=== PATIENT | female | born 1940 | race Caucasian/White ===

== ENCOUNTER 2019-11-19 18:45 | Emergency (ER) | payer MEDICARE, OTHER, SELFPAY ==
[2019-11-19 19:04] VITALS: BP 220/91; PULSE 68; RESP 18; TEMP 36.7; O2SAT 97
--- NOTE | 2019-11-19 19:17 | ED.SKABFB ---
HPI - Skin/Abscess/Foreign Bdy <MACHO Caraballo - Last Filed: 11/19/19 20:40> General Chief complaint: Neck Pain/Injury Stated complaint: swelling mass left side neck Time Seen by Provider: 11/19/19 18:49 Source: patient Mode of arrival: Ambulatory Limitations: no limitations History of Present Illness HPI narrative: 79yo female with a history a HTN, hayfever, chronic sinusitis, and severe allergy to iodine, presents emergency department for swelling to the left side of her face that happened suddenly after eating lunch. She states she felt a large lump on the left side of her jaw with surrounding redness. Patient denies any trauma to the area. She states she has been treated over the past few weeks for a sinus infection. She was supposed to be re-evaluated by her provider but the appointment got moved. Patient states she continues to have some postnasal drip and sinus irritation but has been feeling better. She states she has a history of Meniere's disease and has some irritation in her left ear chronically, she denies any worsening of this pain. Patient states the lump on the left side of her face has significantly decreased over the past hour. Patient denies any fevers but states I never get fevers, she denies any malaise, nausea, vomiting, diarrhea, chest pain, shortness of breath, or other concerns. Patient states she has a history of high blood pressure, was recently taking two medications to control her blood pressure but her primary care provider discontinued when the medications that she was allergic to it. She is scheduled to have a follow-up with him but she has only been on 1 blood pressure medication for the past few months. Denies any headaches, vision changes, syncope, or other concerns. Related Data Previous Rx's Medication Instructions Recorded azithromycin See Rx Instructions .ROUTE 11/19/19 .COMPLEX #6 tab Allergies Allergy/AdvReac Type Severity Reaction Status Date / Time iodine Allergy Severe Anaphylaxis Verified 11/19/19 19:17 Review of Systems <MACHO Caraballo - Last Filed: 11/19/19 20:40> Review of Systems Narrative: REVIEW OF SYSTEMS: GENERAL: Denies fever or chills. HENT: No head trauma. Patient reports swelling to left side of job. EYES: No vision changes. CARDIOVASCULAR: No chest pain or syncope. RESPIRATORY: No shortness of breath or cough. GASTROINTESTINAL: No nausea, vomiting, diarrhea, or constipation. GENITOURINARY: No flank pain. MUSCULOSKELETAL: No pain with jaw movement, see HPI INTEGUMENTARY: No rash, lesions, or pruritus. NEURO: No numbness or tingling. PSYCH: No behavior or mood changes. Patient History <MACHO Caraballo - Last Filed: 11/19/19 20:40> Medical History Chronic sinus infection (Acute) Social History Smoking Status: Never smoker Smoking Status: Never smoker Substance Use Type: does not use Exam <MACHO Caraballo - Last Filed: 11/19/19 20:40> Initial Vital Signs Initial Vital Signs: Vital Signs Temperature 98.0 F 11/19/19 19:04 Pulse Rate 68 11/19/19 19:04 Respiratory Rate 18 11/19/19 19:04 Blood Pressure 220/91 H 11/19/19 19:04 Pulse Oximetry 97 11/19/19 19:04 PHYSICAL EXAMINATION: GENERAL: Well groomed, alert, and cooperative. Answers questions promptly and appropriately. Vital signs noted. HENT: Normocephalic, atraumatic. Ear canals patent. TMs intact without mucus or erythema. Oropharynx without erythema. Tonsils are not present. Slightly tender and swollen left parietal gland. No tenderness to temporal area, no tenderness to mastoid area. No rash, erythema, or nodules. EYES: Conjunctiva pink, sclera white, no periorbital swelling. No discharge. CHEST: Normal to inspection and without deformities. CARDIOVASCULAR: Regular rate. RESPIRATORY: Normal respiratory rate, trachea midline, airway patent. No stridor, nasal flaring or accessory muscle use. Able to speak in full sentences. MUSCULOSKELETAL: Normal gait and coordination. Equal tone and mass bilaterally. EXTREMITIES: Moves all extremities. SKIN: Warm, dry, soft, appropriate color for ethnicity. No lesions, rashes, or wounds to visualized areas. NEURO: Alert and Oriented X 3. Good coordination. No ataxia or cognitive issues. PSYCH: Appropriate affect and mood. <Manuel Paul DO - Last Filed: 11/20/19 06:13> Initial Vital Signs Initial Vital Signs: Vital Signs Temperature 98.0 F 11/19/19 19:04 Pulse Rate 68 11/19/19 19:04 Respiratory Rate 18 11/19/19 19:04 Blood Pressure 220/91 H 11/19/19 19:04 Pulse Oximetry 97 11/19/19 19:04 Course <MACHO Caraballo - Last Filed: 11/19/19 20:40> Course Course Narrative: Patient was able to suck on a mint while in the emergency department, she states swelling has significantly decreased since sucking intermittent. Upon re-evaluation she states that left sinus feels full. Vital Signs Vital signs: Vital Signs - 8 hr 11/19/19 19:04 11/19/19 20:17 Temperature 98.0 F 98.5 F Pulse Rate 68 63 Respiratory Rate 18 14 Blood Pressure 220/91 H 173/85 H Pulse Oximetry 97 98 <Manuel Paul DO - Last Filed: 11/20/19 06:13> Vital Signs Vital signs: Vital Signs - 8 hr 11/19/19 19:04 11/19/19 20:17 Temperature 98.0 F 98.5 F Pulse Rate 68 63 Respiratory Rate 18 14 Blood Pressure 220/91 H 173/85 H Pulse Oximetry 97 98 MDM - Skin/Abscess/Foreign Bdy <MACHO Caraballo - Last Filed: 11/19/19 20:40> Medical Records Attestation: I reviewed the patient's medical records. Lab Data Attestation: I reviewed the patient's lab results. MDM Narrative Medical decision making narrative: 79-year-old female presenting to the emergency department with left-sided facial swelling. I suspect this most likely a swollen parotid gland related to salivary blockage, swelling has significantly decreased since presentation to emergency department. Additionally, blood in the emergency department, swelling has decreased as patient is sucking on a minute. Upon further evaluation, she reported left sinus pressure. She was recently treated for sinus infection and was told that she needed another round of antibiotics. Patient has a history of chronic sinusitis. She states the only medication that she can take for this is azithromycin, all other medications cause allergic reactions. Less likely systemic infection due to lack of systemic symptoms such as fever or tachycardia. Patient is well-appearing, hemodynamically stable. Less likely mastoiditis due to lack of tenderness on palpation of the mastoid, no swelling in this area. Less concern for temporal arteritis given lack of tenderness, swelling, or erythema the temporal area. Given patient's history of chronic sinusitis, this may be contributing to parotid swelling. She was encouraged to follow up with her PCP in the next week. She was counseled about her high blood pressure. Return precautions given for new or worsening symptoms. Patient agreed to plan of care verbalized understanding. Discharge Plan Departure Patient Disposition: Home Clinical Impression: Parotid gland enlargement Sinusitis Qualifiers: Sinusitis location: frontal Chronicity: acute Recurrence: recurrent Qualified Code(s): J01.11 - Acute recurrent frontal sinusitis Discharge Date/Time: 11/19/19 20:05 Instructions: DI for Parotitis-Adult Activity Restrictions/Additional Instructions: Thank you for entrusting me with your care today. As discussed, the swelling on the left side of your face is most likely caused by an enlargement of 1 of your salivary glands. This can happen randomly especially food irritates this area. I recommend sucking on hard candies before and after meal to help prevent this from happening again. Apply warm compresses and alternate with ice. Additionally, there was concern they may have a sinus infection given your left sided pain, history of sinus infections. I prescribed you antibiotics, please take these accordingly. Your blood pressure was high today, please follow up with your primary care provider in the next few weeks. Return emergency department for any new or worsening symptoms such as severe pain, uncontrollable vomiting, dizziness, syncope, or any other concerns. Prescriptions: New azithromycin 250 mg tablet See Rx Instructions .ROUTE .COMPLEX Qty: 6 RF: 0 <Manuel Paul DO - Last Filed: 11/20/19 06:13> Cosign ED Attending Cosignature Attestation: I was immediately available in the department for consultation. This documentation has been reviewed and I agree with assessment and plan. Supervised by Manuel Paul DO
[2019-11-19 20:17] VITALS: BP 173/85; PULSE 63; RESP 14; TEMP 36.9; O2SAT 98
== END 2019-11-19 20:05 | disposition home or self-care (01) ==
PROVIDERS: Emergency Provider Nurse Practitioner
DX: J01.11 Acute recurrent frontal sinusitis (principal); K11.1 Hypertrophy of salivary gland; I10 Essential (primary) hypertension
CPT/HCPCS: 99281

== ENCOUNTER 2020-05-15 18:08 | Observation (INO) | payer MEDICARE, OTHER, SELFPAY ==
[2020-05-15] VITALS (10 sets, daily range): BP systolic 153–198; BP diastolic 70–86; PULSE 66–98; RESP 18–22; TEMP 36.5–36.7; O2SAT 95–99; BMI 30.6
[2020-05-15 19:25] LABS: Add Manual Diff / Slide Review NO; Basophils Absolute Auto 0 /uL (0-100); Basophils Percent Auto 0.4 % (0-2); Eosinophils Absolute Auto 300 /uL (0-450); Eosinophils Percent Auto 3.8 % (2-4); Hematocrit 44.6 % (36-46); Hemoglobin 14.8 g/dL (12.0-16.0); Lymphocytes Absolute Auto 3700 /uL (1100-4500); Lymphocytes Percent Auto 40.1 % (25-40); Mean Corpuscular HGB Conc 33.1 % (30-36); Mean Corpuscular Hemoglobin 30.4 PG (26-34); Mean Corpuscular Volume 91.7 fL (80-100); Monocytes Absolute Auto 600 /uL (0-900); Monocytes Percent Auto 6.9 % (3-14); Neutrophils Absolute Auto 4500 /uL (1500-7000); Neutrophils Percent Auto 48.8 % (50-75); Platelet Count 230 X10^3/uL (150-400); Red Blood Cell Count 4.86 X10^6/uL (4.0-5.2); Red Cell Distribution Width 12.4 % (11.6-14.8); White Blood Cell Count 9.2 X10^3/uL (4.5-11.0)
[2020-05-15 19:29] LABS: Prothrombin Time 11.6 SECONDS (10.1-12.7)
[2020-05-15 19:32] LABS: Alanine Aminotransferase 24 IU/L (<35); Albumin 4.7 g/dL (3.5-5.0); Albumin Globulin Ratio 1.5 (1.0-2.8); Alkaline Phosphatase 87 U/L (38-126); Aspartate Aminotransferase 42 IU/L (14-36); BUN Creatinine Ratio 18.5 (6-22); Bilirubin Total 0.4 mg/dL (0.2-1.3); Blood Urea Nitrogen 28 mg/dL (7-17); Carbon Dioxide 31 mmol/L (22-32); Chloride 103 mmol/L (98-107); Globulin 3.1 g/dL (1.7-4.1); Glucose 126 mg/dL (80-110); HEMOLYSIS 69 (0-50); PTT Partial Thromboplastin Tim 33 SECONDS (26.4-36.2); Sodium 142 mmol/L (137-145); Total Protein 7.8 g/dL (6.3-8.2)
[2020-05-15 19:33] LABS: Potassium 3.7 mmol/L (3.4-5.1)
--- NOTE | 2020-05-15 20:28 | DI.CT.S_ITS ---
PROCEDURE: CT ABDOMEN PELVIS WO CON INDICATIONS: Abdominal pain/GI bleed TECHNIQUE: Noncontrast 5 mm thick sections acquired from the diaphragms to the symphysis. 5 mm coronal and sagittal reformats were then performed. For radiation dose reduction, the following was used: automated exposure control, adjustment of mA and/or kV according to patient size. COMPARISON: [facility], US, US RENAL COMPLETE, 09/12/2019, 14:10. FINDINGS: Image quality: Excellent. ABDOMEN: Lung bases: Lung bases are clear. Heart size is normal. Solid organs: There is a 7 mm indeterminate hepatic hypodensity in the posterior segment of the right hepatic lobe. Mild hepatic steatosis. Liver is normal in size. Gallbladder is probably surgically absent. Mild prominence of common bile duct measuring up to 12 mm, tapering to normal caliber at ampulla. Pancreas is normal in contours. Spleen is normal in size. No adrenal nodules. There is a 3 mm stone in the superior pole of the left kidney. No hydronephrosis. Bilateral perinephric stranding. Kidneys are normal in size. There is a 2 cm cortical cyst in right kidney. Peritoneum and bowel: Unenhanced bowel loops demonstrate normal wall thickness and caliber. There are numerous colonic diverticula. There is a large amount of stool in colon. No free fluid or air. Nodes and vessels: No retroperitoneal or mesenteric adenopathy by size criteria. Mild infrarenal abdominal aortic aneurysm measuring 2.9 cm AP x 3.1 cm transverse. Moderate atherosclerosis. Miscellaneous: Tiny fat containing umbilical hernia is noted. PELVIS: Genitourinary: Bladder wall thickness is normal. Bladder is mildly distended. Miscellaneous: No inguinal adenopathy. Small fat containing right inguinal hernia. Bones: No suspicious bony lesions. No vertebral body compression fractures. IMPRESSION: 1. A source for GI bleed is not identified. 2. Diverticulosis without acute diverticulitis. 3. Mild infrarenal abdominal aortic aneurysm. 4. A 3 mm nonobstructive stone in the superior pole of the left kidney. Dictated by: Padma Crawford M.D. on 05/15/2020 at 21:16 Approved by: Padma Crawford M.D. on 05/15/2020 at 21:22
--- NOTE | 2020-05-15 20:30 | ED.GIBLEED ---
HPI - GI Bleed General Chief complaint: GI Bleed Stated complaint: bleeding from anus/ blood in stool, not sure Time Seen by Provider: 05/15/20 19:59 Source: patient and family Mode of arrival: Ambulatory History of Present Illness HPI Narrative: Patient here for bright red blood per rectum to 3 episodes today. No black stools. Not on blood thinner. Is not anticoagulated. No abdominal pain. No dizziness. No diaphoresis no back pain no chest pain help palpitations. No syncope or near-syncope. No dizziness. Colonoscopy 10 years ago. Had polyps. No diverticulosis. No family history of colon cancer. No night sweats or weight loss. Related Data Home Medications Medication Instructions Recorded Confirmed cetirizine [Zyrtec] 10 mg PO DAILY 05/15/20 05/15/20 losartan-hydrochlorothiazide 50 tab PO DAILY 05/15/20 05/15/20 melatonin 3 mg PO BEDTIME PRN 05/15/20 05/15/20 potassium chloride 10 meq PO DAILY 05/15/20 05/15/20 Allergies Allergy/AdvReac Type Severity Reaction Status Date / Time iodine Allergy Severe Anaphylaxis Verified 11/19/19 19:17 Review of Systems Review of Systems Narrative: GENERAL: Denies chills, fatigue, malaise, fever, sweats. HEENT: Denies sinus pain, ear pain, sore throat RESPIRATORY: Denies dyspnea, cough CARDIOVASCULAR: Denies chest pain, palpitations GASTROINTESTINAL: Denies nausea, vomiting, abdominal pain, complaints of hematochezia, no melena : Denies dysuria, frequency, hematuria MUSCULOSKELETAL: denies muscle or bony pain SKIN: Denies rash, skin lesions NEUROLOGIC: Denies weakness, numbness ROS Unobtainable: All systems reviewed & are unremarkable except as noted in HPI and below Patient History Medical History (Updated 05/15/20 @ 21:39 by Konrad Escobar MD) Chronic sinus infection Social History household members: none Smoking Status: Never smoker alcohol intake: never Smoking Status: Never smoker Substance Use Type: does not use Exam Narrative Exam Narrative: GENERAL: in no distress, not toxic not dyspneic HEAD: Normocephalic. EYES: Pupils equal round No scleral icterus. No injection no discharge ENT: Mucous membranes moist. NECK: Trachea midline. CARDIOVASCULAR: Regular rate and rhythm without murmurs RESPIRATORY: Clear to auscultation. Breath sounds equal bilaterally. No wheezes, rales, or rhonchi. GASTROINTESTINAL: Abdomen soft, non-tender, female nurse jocy at bedside, there is bright red per rectum. Hemoccult positive. No melena or black stools. EXTREMITIES: No gross deformities. BACK: No flank tenderness. NEURO: AOx4. SKIN: Warm and dry PSYCH: Not anxious, is cooperative Initial Vital Signs Initial Vital Signs: Vital Signs Temperature 98.0 F 05/15/20 18:14 Pulse Rate 98 H 05/15/20 18:14 Respiratory Rate 22 05/15/20 18:14 Blood Pressure 198/86 H 05/15/20 18:14 Pulse Oximetry 98 05/15/20 18:14 Course Course Course Narrative: Reviewed results with patient and agrees for admission and observation Decision to Admit Date: 05/15/20 Decision to Admit time: 21:33 Orders Ordered: ED Orders 05/15/20 19:12 Complete Blood Count AUTO DIFF Stat Comprehensive Metabolic Panel Stat Partial Thromboplastin Time Stat Prothrombin Time INR Stat 05/15/20 20:28 CT abdomen pelvis wo con Stat 05/15/20 20:42 COVID19 Stat Acetaminophen (Acetaminophen 325 Mg Tablet) 650 mg PO Q6HR PRN PRN Reason: Fever/Mild Pain (1-3) Sodium Chloride (Normal Saline 0.9%) 1,000 mls @ 100 mls/hr IV CONT [place] Morphine Sulfate (Morphine 2 Mg/Ml Inj) 2 mg IV Q4HR PRN PRN Reason: Pain, Moderate (4-6) Naloxone HCl (Naloxone 0.4 Mg/Ml Vial) 0.2 mg IV Q2MIN PRN PRN Reason: Opiate Reversal Ondansetron HCl (Ondansetron 4 Mg/2 Ml Inj) 4 mg IV Q8HR PRN PRN Reason: Nausea And Vomiting Reevaluation(s) Reevaluation #1: They agree for observation overnight. Time: 21:36 Consultations Consultation #1: Spoke with general surgery Dr. Castano, agree patient should be observed overnight. No scope planned right now until repeat hemoglobin in the morning. Time: 21:36 Consultation #2: Spoke with Lance, will admit Time: 21:37 Vital Signs Vital signs: Vital Signs - 8 hr 05/15/20 18:14 02/03/21 19:13 05/15/20 19:30 Temperature 98.0 F Pulse Rate 98 H 80 68 Respiratory Rate 22 20 Blood Pressure 198/86 H 187/80 H Pulse Oximetry 98 97 97 05/15/20 19:31 05/15/20 20:00 05/15/20 20:01 Temperature Pulse Rate 74 69 69 Respiratory Rate Blood Pressure 162/73 H 153/70 H Pulse Oximetry 95 96 95 05/15/20 20:30 05/15/20 20:31 05/15/20 21:00 Temperature Pulse Rate 80 79 73 Respiratory Rate Blood Pressure 193/84 H Pulse Oximetry 99 97 97 MDM - GI Bleed Differential Diagnosis Differential diagnosis: Likely hemorrhoids, Upper gastrointestinal hemorrhage, Lower gastrointestinal hemorrhage, hematochezia, melena and other (Diverticulosis) Lab Data Attestation: I reviewed the patient's lab results. Result diagrams: 05/15/20 19:12 05/15/20 19:12 Labs: Lab Results 05/15/20 05/15/20 05/15/20 Range/Units 19:12 19:12 19:12 WBC 9.2 (4.5-11.0) X10^3/uL RBC 4.86 (4.0-5.2) X10^6/uL Hgb 14.8 (12.0-16.0) g/dL Hct 44.6 (36-46) % MCV 91.7 (80-100) fL MCH 30.4 (26-34) PG MCHC 33.1 (30-36) % RDW 12.4 (11.6-14.8) % Plt Count 230 (150-400) X10^3/uL Neut % (Auto) 48.8 L (50-75) % Lymph % (Auto) 40.1 H (25-40) % [place] % (Auto) 6.9 (3-14) % Eos % (Auto) 3.8 (2-4) % Baso % (Auto) 0.4 (0-2) % Neut # (Auto) 4500 (3022-2641) /uL Lymph # (Auto) 3700 (2759-5854) /uL [place] # (Auto) 600 (0-900) /uL Eos # (Auto) 300 (0-450) /uL Baso # (Auto) 0 (0-100) /uL PT 11.6 (10.1-12.7) SECONDS INR 1.0 (0.9-1.3) APTT 33 (26.4-36.2) SECONDS Sodium 142 (137-145) mmol/L Potassium 3.7 (3.4-5.1) mmol/L Chloride 103 (98-107) mmol/L Carbon Dioxide 31 (22-32) mmol/L BUN 28 H (7-17) mg/dL Creatinine 1.51 H (0.52-1.04) mg/dL Estimated GFR 33.0 L (>60) mL/min BUN/Creatinine Ratio 18.5 (6-22) Glucose 126 H (80-110) mg/dL Calcium 10.0 (8.4-10.2) mg/dL Magnesium (1.6-2.3) mg/dL Total Bilirubin 0.4 (0.2-1.3) mg/dL AST 42 H (14-36) IU/L ALT 24 (<35) IU/L Alkaline Phosphatase 87 (38-126) U/L Total Protein 7.8 (6.3-8.2) g/dL Albumin 4.7 (3.5-5.0) g/dL Globulin 3.1 (1.7-4.1) g/dL Albumin/Globulin Ratio 1.5 (1.0-2.8) SARS-CoV-2 (PCR) (Negative) 05/15/20 05/15/20 Range/Units 19:12 20:42 WBC (4.5-11.0) X10^3/uL RBC (4.0-5.2) X10^6/uL Hgb (12.0-16.0) g/dL Hct (36-46) % MCV (80-100) fL MCH (26-34) PG MCHC (30-36) % RDW (11.6-14.8) % Plt Count (150-400) X10^3/uL Neut % (Auto) (50-75) % Lymph % (Auto) (25-40) % [place] % (Auto) (3-14) % Eos % (Auto) (2-4) % Baso % (Auto) (0-2) % Neut # (Auto) (1544-2106) /uL Lymph # (Auto) (6679-8430) /uL [place] # (Auto) (0-900) /uL Eos # (Auto) (0-450) /uL Baso # (Auto) (0-100) /uL PT (10.1-12.7) SECONDS INR (0.9-1.3) APTT (26.4-36.2) SECONDS Sodium (137-145) mmol/L Potassium (3.4-5.1) mmol/L Chloride (98-107) mmol/L Carbon Dioxide (22-32) mmol/L BUN (7-17) mg/dL Creatinine (0.52-1.04) mg/dL Estimated GFR (>60) mL/min BUN/Creatinine Ratio (6-22) Glucose (80-110) mg/dL Calcium (8.4-10.2) mg/dL Magnesium 2.2 (1.6-2.3) mg/dL Total Bilirubin (0.2-1.3) mg/dL AST (14-36) IU/L ALT (<35) IU/L Alkaline Phosphatase (38-126) U/L Total Protein (6.3-8.2) g/dL Albumin (3.5-5.0) g/dL Globulin (1.7-4.1) g/dL Albumin/Globulin Ratio (1.0-2.8) SARS-CoV-2 (PCR) Negative (Negative) Imaging Data CT scan - abdomen/pelvis: Radiologist's Impression: [address] Scan ReportSigned Patient: Panfilo Jarvis#: [id number]: [id number]:[id number]/Sex: 80 / FDate of Service: 05/15/20Loc: EDAccession Number: [id number] Procedure: CT abdomen pelvis wo con Ordering Provider: Konrad Escobar MD PROCEDURE: CT ABDOMEN PELVIS WO CON INDICATIONS: Abdominal pain/GI bleed TECHNIQUE: Noncontrast 5 mm thick sections acquired from the diaphragms to the symphysis. 5 mm coronal and sagittal reformats were then performed. For radiation dose reduction, the following was used: automated exposure control, adjustment of mA and/or kV according to patient size. COMPARISON: [facility], US, US RENAL COMPLETE, 09/12/2019, 14:10. FINDINGS: Image quality: Excellent. ABDOMEN: Lung bases: Lung bases are clear. Heart size is normal. Solid organs: There is a 7 mm indeterminate hepatic hypodensity in the posterior segment of the right hepatic lobe. Mild hepatic steatosis. Liver is normal in size. Gallbladder is probably surgically absent. Mild prominence of common bile duct measuring up to 12 mm, tapering to normal caliber at ampulla. Pancreas is normal in contours. Spleen is normal in size. No adrenal nodules. There is a 3 mm stone in the superior pole of the left kidney. No hydronephrosis. Bilateral perinephric stranding. Kidneys are normal in size. There is a 2 cm cortical cyst in right kidney. Peritoneum and bowel: Unenhanced bowel loops demonstrate normal wall thickness and caliber. There are numerous colonic diverticula. There is a large amount of stool in colon. No free fluid or air. Nodes and vessels: No retroperitoneal or mesenteric adenopathy by size criteria. Mild infrarenal abdominal aortic aneurysm measuring 2.9 cm AP x 3.1 cm transverse. Moderate atherosclerosis. Miscellaneous: Tiny fat containing umbilical hernia is noted. PELVIS: Genitourinary: Bladder wall thickness is normal. Bladder is mildly distended. Miscellaneous: No inguinal adenopathy. Small fat containing right inguinal hernia. Bones: No suspicious bony lesions. No vertebral body compression fractures. IMPRESSION: 1. A source for GI bleed is not identified. 2. Diverticulosis without acute diverticulitis. 3. Mild infrarenal abdominal aortic aneurysm. 4. A 3 mm nonobstructive stone in the superior pole of the left kidney. Dictated by: Padma Crawford M.D. on 05/15/2020 at 21:16 Approved by: Padma Crawford M.D. on 05/15/2020 at 21:22 MDM Narrative Medical decision making narrative: Appropriate for admission. Patient still has bright red blood per rectum. Will need observation Discharge Plan Departure Patient Disposition: Admitted as Observation Clinical Impression: Hematochezia, Diverticulosis Admit Date/Time: 05/15/20 21:53 Admit Provider: Leandro Floyd
[2020-05-15 21:07] LABS: COVID19 -Nasal RAPID Negative (Negative)
[2020-05-15 23:11] LABS: Magnesium 2.2 mg/dL (1.6-2.3)
--- NOTE | 2020-05-15 23:39 | P.HP_ITS ---
History of Present Illness History of Present Illness Date Patient Seen: 05/15/20 Time Patient Seen: 23:20 Chief complaint: bleeding from anus/ blood in stool, not sure Narrative: Ms. Divine Jarvis is an 80-year-old female patient with a past medical history significant for hypertension, kidney stones and chronic sinusitis who presents to the ER with lower GI bleeding. Patient states S in her normal state health when she had 3 bloody bowel movements today which she describes as maroon in liquid. She denies complaints of epigastric or abdominal pain or cramping. She has had no nausea vomiting, no hematemesis. She is not on blood thinners. She has had no previous episodes of GI bleeding. She does have multiple allergies including aspirin and iodine. The patient is last colonoscopy is reported to be approximately 5-6 years ago. She has reports no recent cold or flu symptoms has had no known COVID-19 exposures. She denies headaches or dizziness, nasal congestion sore throat. She denies chest pain or palpitations. She reports no exertional dyspnea cough or wheezing. She has no abdominal pain as noted above. She denies urinary symptoms of urgency frequency or burning. The patient is active exercising daily and ambulatory without assistive devices. Upon arrival to the ER the patient is afebrile with temperature 98.0?, heart rate of 98. Hypertensive at 198/86, respirations are 22 with a room air saturation 98%. A CT of the abdomen pelvis is obtained finding diverticulosis without diverticulitis an incidental notation of a mild infrarenal abdominal aortic aneurysm and 3 mm nonobstructive stone in the superior pole of left kidney. On laboratory analysis the patient has white count of 9.2, hemoglobin 14.8 and hematocrit of 40.6. Her platelets are 230. PT is 11.6 with an INR of 1.0 and a PTT of 33. Her electrolytes are all within normal range. She has an elevated BUN at 28 and creatinine of 1.51 with an EGFR of 33. Her liver f unctions are within normal limits. Stool guaiac in the ER is positive per ER physician report and COVID-[address] Castano general surgery is contacted and agrees to consult. The patient is admitted to the hospitalist service for diverticulosis with lower GI bleeding. PCP is Dr. Chandra in [place] Patient History Medical History (Updated 05/16/20 @ 00:09 by MACHO Qureshi) Chronic sinus infection Hypertension Kidney stones Surgical History (Updated 05/16/20 @ 00:09 by MACHO Qureshi) History of appendectomy History of cholecystectomy History of colonoscopy History of hysterectomy History of sinus surgery Family & Social History Family History (Updated 05/16/20 @ 00:10 by MACHO Qureshi) Father Myocardial infarction Mother Cholelithiasis Social History: household members none Safety & Behavioral: Suicidal Ideation Description None Tobacco & Substance use: Smoking Status Never smoker alcohol intake never Substance Use Type does not use Meds Home Medications and Allergies Home Medications Medication Instructions Recorded Confirmed Type cetirizine [Zyrtec] 10 mg PO DAILY 05/15/20 05/15/20 History losartan-hydrochlorothiazide 50 tab PO DAILY 05/15/20 05/15/20 History melatonin 3 mg PO BEDTIME PRN 05/15/20 05/15/20 History potassium chloride 10 meq PO DAILY 05/15/20 05/15/20 History Allergies Allergy/AdvReac Type Severity Reaction Status Date / Time iodine Allergy Severe Anaphylaxis Verified 11/19/19 19:17 Review of Systems Review of Systems ROS: Yes All systems reviewed with the patient and are negative except as otherwise documented Exam Vital Signs (past 8 hours): - 05/15/20 18:14 05/15/20 19:13 05/15/20 19:30 Temperature 98.0 F Pulse Rate 98 H 80 68 Respiratory Rate 22 20 Blood Pressure 198/86 H 187/80 H Pulse Oximetry 98 97 97 05/15/20 19:31 05/15/20 20:00 05/15/20 20:01 Temperature Pulse Rate 74 69 69 Respiratory Rate Blood Pressure 162/73 H 153/70 H Pulse Oximetry 95 96 95 05/15/20 20:30 05/15/20 20:31 05/15/20 21:00 Temperature Pulse Rate 80 79 73 Respiratory Rate Blood Pressure 193/84 H Pulse Oximetry 99 97 97 05/15/20 22:25 Temperature 97.7 F Pulse Rate 66 Respiratory Rate 18 Blood Pressure 157/86 H Pulse Oximetry 98 Oxygen Delivery Method Room Air Narrative Exam Narrative: GENERAL APPEARANCE: well developed, well nourished, in no acute distress. HEENT: Normocephalic, PERRLA, conjunctiva clear, EOMs intact without nystagmus, no sinus tenderness to percussion, no rhinorrhea, mucous membranes are moist and pink, white coating on tongue NECK/THYROID: neck supple, no JVD, no carotid bruit, no thyromegaly, trachea midline. LYMPH NODES: no cervical or supraclavicular lymphadenopathy. SKIN: [place], warm and dry, no visible lesions HEART: regular rate and rhythm, S1-S2, 1/6 systolic murmur, no rubs or gallops, brisk capillary refill, no edema LUNGS: clear to auscultation bilaterally, no coarseness crackles or wheezing, no cough present CHEST: Symmetrical movement, no accessory muscle use, good tidal volume. ABDOMEN: Soft, round, no distention, no epigastric or abdominal tenderness, no organomegaly, no flank or suprapubic tenderness, hyperactive bowel tones. BACK: Normal curvature, nontender to palpation, no CVA tenderness on percussion EXTREMITIES: moves all extremities, strength is 5/5 and symmetrical, no deformities or joint effusions, no clubbing or cyanosis. NEUROLOGIC: AAO x4, no focal neurologic deficits, cranial nerves II-XII grossly intact, sensation intact to light touch, hearing grossly normal to speech. PSYCH: Good eye contact, hyperverbal, tangential thought, cooperative, stable Objective Labs Result Diagrams: 05/15/20 19:12 05/15/20 19:12 Labs: Laboratory Results - last 24 hr 05/15/20 05/15/20 05/15/20 19:12 19:12 19:12 WBC 9.2 RBC 4.86 Hgb 14.8 Hct 44.6 MCV 91.7 MCH 30.4 MCHC 33.1 RDW 12.4 Plt Count 230 Neut % (Auto) 48.8 L Lymph % (Auto) 40.1 H [place] % (Auto) 6.9 Eos % (Auto) 3.8 Baso % (Auto) 0.4 Neut # (Auto) 4500 Lymph # (Auto) 3700 [place] # (Auto) 600 Eos # (Auto) 300 Baso # (Auto) 0 PT 11.6 INR 1.0 APTT 33 Sodium 142 Potassium 3.7 Chloride 103 Carbon Dioxide 31 BUN 28 H Creatinine 1.51 H Estimated GFR 33.0 L BUN/Creatinine Ratio 18.5 Glucose 126 H Calcium 10.0 Magnesium Total Bilirubin 0.4 AST 42 H ALT 24 Alkaline Phosphatase 87 Total Protein 7.8 Albumin 4.7 Globulin 3.1 Albumin/Globulin Ratio 1.5 SARS-CoV-2 (PCR) 05/15/20 05/15/20 19:12 20:42 WBC RBC Hgb Hct MCV MCH MCHC RDW Plt Count Neut % (Auto) Lymph % (Auto) [place] % (Auto) Eos % (Auto) Baso % (Auto) Neut # (Auto) Lymph # (Auto) [place] # (Auto) Eos # (Auto) Baso # (Auto) PT INR APTT Sodium Potassium Chloride Carbon Dioxide BUN Creatinine Estimated GFR BUN/Creatinine Ratio Glucose Calcium Magnesium 2.2 Total Bilirubin AST ALT Alkaline Phosphatase Total Protein Albumin Globulin Albumin/Globulin Ratio SARS-CoV-2 (PCR) Negative Assessment & Plan Assessment & Plan narrative: This is an 80-year-old female patient with a past medical history 2nd for hypertension, kidney stones and chronic sinusitis who presents to the ER with new onset of hematochezia onset this afternoon. The patient denies abdominal pain or cramping and has had no prior GI bleeding events. 1. Lower GI bleed, acute, present on admission, active -the patient has had 3 room colored liquid stools today. She has had no prior episodes is on no blood thinners and denies abdominal pain, nausea vomiting or hematemesis. Skin and mucous membranes are pink. -CT scan finds diverticulosis without diverticulitis. -patient has a hemoglobin of 14.8 and hematocrit of 40.6. There are no other labs available for comparison. -general surgery has been contacted through the emergency department and Dr. Castano has agreed to consult. -patient will be NPO after midnight pending surgical evaluation. -ordered IV normal saline 100 cc/hour. -the patient has been typed and screened and will recheck blood count in the morning. 2. Chronic kidney disease stage 3, probable chronic, present on admission, active -patient has previously been told she has chronic renal disease and has a creatinine of 1.51 on initial labs. No the labs are available for comparison. -the patient's skin is somewhat dry in texture but remains supple, she is cur rently prescribed losartan 50 mg/hydrochlorothiazide 12.5 mg daily. -ordered normal saline 100 cc/hour. -will hold morning antihypertensives until recheck of renal function on a.m. labs. 3. Essential Hypertension, chronic, stable. -blood pressure on admission is elevated 198/86 improving to 157/86 following admission to the acute care floor. -patient describes multiple drug allergies to previous antihypertensives however patient cannot state the medication names. Patient is currently on losartan 50/hydrochlorothiazide 12.5. -medication will be held related to elevated creatinine at 1.51 and will re- evaluate on morning labs. -will follow blood pressures closely. VTE prophylaxis: Bilateral SCDs, chemical prophylaxis contraindicated IV fluid: Normal saline 100 cc/hour. Diet: NPO until evaluation by surgery Code status: Full code, the patient designates her daughter Linda to be her surrogate decision maker. The patient is admitted to the hospital due to the severity of her complaints and risk for complications and adverse events. The patient is admitted as observation with expected length of stay to be less than 2 midnights. COVID-19 COVID-19 status: Negative Result date/Date tested (Pos, Neg/Pending): 05/15/20 Scores GCS Ángel coma scale eye opening: Spontaneous [place] coma scale verbal response: Orientated [place] coma scale motor response: Obey commands [place] coma scale total score: 15
--- NOTE | 2020-05-15 23:40 | PC.ADMIT ---
1511 11th Admission Note: The patient,Divine Jarvis,80 y/o, was given written information regarding hospital policies, unit procedures and contact persons. Patient's smoking status: Never smoker. Pt arrived via stretcher from ED at approx 2225. Oriented to room and call system. Home meds locked in night med room. Pt denies pain. Tele applied. call light within reach. pt verbalized she will call for needs. Vital Signs - 8 hr 05/15/20 18:14 05/15/20 19:13 05/15/20 19:30 Temperature 98.0 F Pulse Rate 98 H 80 68 Respiratory Rate 22 20 Blood Pressure 198/86 H 187/80 H Pulse Oximetry 98 97 97 05/15/20 19:31 05/15/20 20:00 05/15/20 20:01 Temperature Pulse Rate 74 69 69 Respiratory Rate Blood Pressure 162/73 H 153/70 H Pulse Oximetry 95 96 95 05/15/20 20:30 05/15/20 20:31 05/15/20 21:00 Temperature Pulse Rate 80 79 73 Respiratory Rate Blood Pressure 193/84 H Pulse Oximetry 99 97 97 05/15/20 22:25 Temperature 97.7 F Pulse Rate 66 Respiratory Rate 18 Blood Pressure 157/86 H Pulse Oximetry 98
[2020-05-16] VITALS: BP 132/76; BP 148/94; BP 149/69; PULSE 72; PULSE 80; PULSE 87; RESP 18; TEMP 36.5; O2SAT 96
[2020-05-16] MEDS: SODIUM CHLORIDE 0.9% 1,000 ML 100 ML IV ×2 (00:48→10:32)
[2020-05-16] MEDS: MELATONIN 3 MG TABLET PO (01:03)
[2020-05-16 04:29] VITALS: BP 141/73; PULSE 55; RESP 18; TEMP 36.2; O2SAT 97
--- NOTE | 2020-05-16 06:47 | PC.NURSE ---
Pt describes burning on urination with flecks of blood in urine, witnessed by SPECIAL EDUCATION INSTRUCTOR and not by this RN. Reported to provider, UA ordered.
[2020-05-16 06:52] LABS: Add Manual Diff / Slide Review NO; Basophils Absolute Auto 0 /uL (0-100); Basophils Percent Auto 0.5 % (0-2); Eosinophils Absolute Auto 400 /uL (0-450); Eosinophils Percent Auto 4.8 % (2-4); Hematocrit 40.8 % (36-46); Hemoglobin 13.5 g/dL (12.0-16.0); Lymphocytes Absolute Auto 3300 /uL (1100-4500); Lymphocytes Percent Auto 41.6 % (25-40); Mean Corpuscular HGB Conc 33.2 % (30-36); Mean Corpuscular Hemoglobin 30.4 PG (26-34); Mean Corpuscular Volume 91.5 fL (80-100); Monocytes Absolute Auto 700 /uL (0-900); Monocytes Percent Auto 9.2 % (3-14); Neutrophils Absolute Auto 3500 /uL (1500-7000); Neutrophils Percent Auto 43.9 % (50-75); Platelet Count 213 X10^3/uL (150-400); Red Blood Cell Count 4.45 X10^6/uL (4.0-5.2); Red Cell Distribution Width 12.3 % (11.6-14.8); White Blood Cell Count 7.9 X10^3/uL (4.5-11.0)
[2020-05-16 07:02] LABS: BUN Creatinine Ratio 22.7 (6-22); Blood Urea Nitrogen 29 mg/dL (7-17); Calcium 9.7 mg/dL (8.4-10.2); Carbon Dioxide 32 mmol/L (22-32); Chloride 105 mmol/L (98-107); Estimated Glomerular Filt Rate 39.9 mL/min (>60); Glucose 120 mg/dL (80-110); HEMOLYSIS < 15 (0-50); Potassium 3.2 mmol/L (3.4-5.1); Sodium 140 mmol/L (137-145)
[2020-05-16 08:00] VITALS: BP 144/74; PULSE 60; RESP 17; TEMP 36.6; O2SAT 96
[2020-05-16 10:17] LABS: Appearance Urine UA CLEAR; Bilirubin Urine UA NEGATIVE (NEGATIVE); Color Urine UA YELLOW; Glucose Urine UA NEGATIVE (Negative); Ketones Urine UA NEGATIVE (NEGATIVE); Leukocyte Esterase Urine UA TRACE (NEGATIVE); Nitrite Urine UA NEGATIVE (Negative); Occult Blood Urine UA 3+ (Negative); Protein Urine UA NEGATIVE (Negative); Specific Gravity Urine UA 1.025 (1.000-1.035); Urobilinogen Urine UA 0.2 E.U./dL (0.2)
[2020-05-16 11:16] LABS: Bacteria Urine Few (2-10); Culture Indicated Urine Specimen Cultured; RBC Urine 1-5/HPF (0-5/HPF); Squamous Epithelial Cell Urine 0-1 /HPF (0-5/HPF); WBC Urine 1-5/HPF (0-5/HPF)
[2020-05-16 12:00] VITALS: BP 159/68; PULSE 66; RESP 18; TEMP 36.3; O2SAT 96
--- NOTE | 2020-05-16 12:21 | DIET.PN ---
Dietary Progress Note Assessment: 80y F admitted for GIB referred to nutrition for GIB and diverticulosis as pt testing shows no diverticulitis. Pt noticed several maroon stools yesterday after lunch but feels energetic and does not feel sick. She is quite active, dancing up to 45min/d. Pt reports allergies to iodine, almonds, and sensitivity to dairy (tolerates minimal). Pt eats no nuts except smooth peanut butter, no fish except canned tuna, no mayonnaise, and no onions. Pts aversion to onions related to food insecurity during the war in childhood where they ate only onions and potatoes. Usual Day: B(11am): cheerios c 1% milk and coffee L: turkey sandwich on whole wheat c lettuce, tomato, mustard or PB+J on wheat D: stew or meat and potato c green salad, cabbage and saurkraut, rosario salad Beverages: mostly water, sometimes flavors with splash of blueberry juice or cranberry juice During summer months patients diet has more fiber including fresh fruit and tomatoes from garden. RD Impression: Pt overall has good health for age with regular physical activity and a reasonably healthy diet. Pts diet appears to be appropriate for CKD3 based on her current labs. Pt could stand to include more intentional fiber during winter months when her garden is out of commission to support intestinal health and ensure soft, easy to pass BMs. HT: 154.9cm WT: 73.4kg BMI: 30 Labs: hgb 13.5, K+ 3.2 L, Cr 1.28 H, eGFR 39.9 L Interventions: Encouraged pt to intentionally include an extra high fiber food daily during winter months to support intestinal health such as: 1c blueberries, 1/2c beans/lentils, pear or apple.
[2020-05-16] MEDS: ACETAMINOPHEN 325 MG TABLET 650 MG PO (12:25)
[2020-05-16 13:06] VITALS: BP 159/68; PULSE 66
[2020-05-16] MEDS: LOSARTAN 50 MG TABLET PO (13:06)
--- NOTE | 2020-05-16 13:27 | CM.IDA ---
Initial DCP Assessment Note Pt is an 80 yo female, resident of [facility], admitted observation w/symptoms of lower GI Bleed PCP: PCP Not Listed Payer: [facility] Reviewed chart, pt discussed in multidisciplinary rounds this morning. Dr Rosales anticipates patient may be able to return home this evening if H+H remains WNL and bleeding stops. Met w/patient and her dtr at bedside, introduced role and reviewed DCP. Patient initially defensive, stating she will only be returning home, no needs from this BUTTON MACHINE OPERATOR. With further discussion, this BUTTON MACHINE OPERATOR learns patient is of [place] descent and very indp and active at baseline. Patient has numerous family members and friends that look after her well being, especially since her spouse passed aprox 2 years ago. Dtr explains patient can either DC back home or DC to her house for additional support if needed. Patient/family expect no needs from DCP team, appreciative of visit. Patient would rather not have HH services, explains her spouse had Hospice service before his passing and she did not like the people coking/going from her home. No needs expected from DC planning team although will remain available in case this changes. LETICIA Portillo Discharge Planning/Care Management CM Discharge Assessment Start: 05/16/20 13:04 Freq: Status: Active Protocol: Document 05/16/20 13:04 KATIE (Rec: 05/16/20 13:21 KATIE [id number]) Discharge Planning Assessment Assigned Coil Repair Technician LETICIA Swain DPOA/Assigned Designee Name Susy Feng dtr ([facility]) Contact Information [phone], Advance Directives? No History Provided By Patient,Family Member,Medical Record Prior Living Arrangements House Household Members none Type of transporation used prior to Drives own vehicle admit Willing to Return to Facility? No Independent with ADL's Yes Is patient alert and oriented? Yes Caregiver for Another No Barriers to Discharge No Discharge Plan Home Transportation Arrangement Family Referrals Initiated None needed
--- NOTE | 2020-05-16 15:42 | PC.NURSE ---
Discharge note: Pt discharged with all belongings, Telemetry monitoring removed, PIV d/c with catheter intact, bandage placed. Pt escorted via wheelchair to ER entrance and assisted into private vehicle with no difficulty. No further patient contact at this time.
--- NOTE | 2020-05-16 17:47 | PM.DS.1 ---
History of Present Illness History of Present Illness Date Patient Seen: 05/16/20 Chief complaint: bleeding from anus/ blood in stool, not sure Narrative: Ms. Divine Jarvis is an 80-year-old female patient with a past medical history significant for hypertension, kidney stones and chronic sinusitis who presents to the ER with lower GI bleeding. Patient states S in her normal state health when she had 3 bloody bowel movements today which she describes as maroon in liquid. She denies complaints of epigastric or abdominal pain or cramping. She has had no nausea vomiting, no hematemesis. She is not on blood thinners. She has had no previous episodes of GI bleeding. She does have multiple allergies including aspirin and iodine. The patient is last colonoscopy is reported to be approximately 5-6 years ago. She has reports no recent cold or flu symptoms has had no known COVID-19 exposures. She denies headaches or dizziness, nasal congestion sore throat. She denies chest pain or palpitations. She reports no exertional dyspnea cough or wheezing. She has no abdominal pain as noted above. She denies urinary symptoms of urgency frequency or burning. The patient is active exercising daily and ambulatory without assistive devices. Upon arrival to the ER the patient is afebrile with temperature 98.0?, heart rate of 98. Hypertensive at 198/86, respirations are 22 with a room air saturation 98%. A CT of the abdomen pelvis is obtained finding diverticulosis without diverticulitis an incidental notation of a mild infrarenal abdominal aortic aneurysm and 3 mm nonobstructive stone in the superior pole of left kidney. On laboratory analysis the patient has white count of 9.2, hemoglobin 14.8 and hematocrit of 40.6. Her platelets are 230. PT is 11.6 with an INR of 1.0 and a PTT of 33. Her electrolytes are all within normal range. She has an elevated BUN at 28 and creatinine of 1.51 with an EGFR of 33. Her liver functions are within normal limits. Stool guaiac in the ER is positive per ER physician report and COVID-[address] Castano general surgery is contacted and agrees to consult. The patient is admitted to the hospitalist service for diverticulosis with lower GI bleeding. Discharge Providers Provider Date of admission: 05/15/20 21:53 Discharge Date: 05/16/20 Consults: 05/15/20 22:31 Consult to Dietitian, Adult Routine Comment: Reason For Exam: GI bleed, diverticulosis Consult to Discharge Planning Routine Comment: Consult to General Surgery Routine Comment: Consulting Provider: Jazmin Castano Reason for consultation: Lower GI bleed Has provider been notified: Yes Discharge provider: Felicia Rosales MD Summary Hospital Course Discharge Diagnosis: 1. Hematochezia, etiology unclear 2. Diverticulosis 3. Hypertension 4. Hyperlipidemia 5. Acute kidney injury, likely related to dehydration and hydrochlorothiazide Hospital Course: The patient is a 1-year-old female who was admitted to the hospital for hematochezia. Patient developed abrupt onset rectal bleeding. It was frequent and were diffused. She had no pain associated. No cramping. Patient is not anticoagulated. She was admitted to the hospital given IV hydration. She did have bloody stool last night. She had a blood tinged stool today. She had minimal bleeding around the edge of the stool. She had no further significant bleeding. The patient also denied any crampy abdominal pain. Her diet was advanced. Her hemoglobin dropped from 14.5 g to 13.5 g. As the patient had no further significant bleeding, and no hemodynamic instability she was deemed appropriate for discharge with plans for an outpatient colonoscopy as soon as can be scheduled. Patient was deemed appropriate for discharge and discharged home. Status at Discharge Cognitive/behavioral status at discharge: oriented Functional status at discharge: independent ambulation Overall status at discharge: patient is back to baseline Time Spent with Patient Time spent: Less than 30 minutes Exam Vital Signs (past 8 hours): - 05/16/20 12:00 05/16/20 13:06 Temperature 97.4 F L Pulse Rate 66 66 Respiratory Rate 18 Blood Pressure 159/68 H 159/68 H Pulse Oximetry 96 Oxygen Delivery Method Room Air Oxygen Flow Rate 0 Narrative Exam Narrative: Pleasant elderly female in no obvious distress Lungs: Clear to auscultation Cardiac exam: Regular rate and rhythm normal S1-S2 Abdomen: Soft nontender nondistended Extremities: No edema Objective Labs Result Diagrams: 05/16/20 06:23 05/16/20 06:23 Labs: Laboratory Results - last 24 hr 05/15/20 05/15/20 05/15/20 19:12 19:12 19:12 WBC 9.2 RBC 4.86 Hgb 14.8 Hct 44.6 MCV 91.7 MCH 30.4 MCHC 33.1 RDW 12.4 Plt Count 230 Neut % (Auto) 48.8 L Lymph % (Auto) 40.1 H [place] % (Auto) 6.9 Eos % (Auto) 3.8 Baso % (Auto) 0.4 Neut # (Auto) 4500 Lymph # (Auto) 3700 [place] # (Auto) 600 Eos # (Auto) 300 Baso # (Auto) 0 PT 11.6 INR 1.0 APTT 33 Sodium 142 Potassium 3.7 Chloride 103 Carbon Dioxide 31 BUN 28 H Creatinine 1.51 H Estimated GFR 33.0 L BUN/Creatinine Ratio 18.5 Glucose 126 H Calcium 10.0 Magnesium Total Bilirubin 0.4 AST 42 H ALT 24 Alkaline Phosphatase 87 Total Protein 7.8 Albumin 4.7 Globulin 3.1 Albumin/Globulin Ratio 1.5 Urine Color Urine Appearance Urine pH Ur Specific [place] Urine Protein Urine Glucose (UA) Urine Ketones Urine Occult Blood Urine Nitrate Urine Bilirubin Urine Urobilinogen Ur Leukocyte Esterase Urine RBC Urine WBC Ur Squamous Epith Cells Urine Bacteria Ur Culture Indicated? SARS-CoV-2 (PCR) 05/15/20 05/15/20 05/16/20 19:12 20:42 06:23 WBC 7.9 RBC 4.45 Hgb 13.5 Hct 40.8 MCV 91.5 MCH 30.4 MCHC 33.2 RDW 12.3 Plt Count 213 Neut % (Auto) 43.9 L Lymph % (Auto) 41.6 H [place] % (Auto) 9.2 Eos % (Auto) 4.8 H Baso % (Auto) 0.5 Neut # (Auto) 3500 Lymph # (Auto) 3300 [place] # (Auto) 700 Eos # (Auto) 400 Baso # (Auto) 0 PT INR APTT Sodium Potassium Chloride Carbon Dioxide BUN Creatinine Estimated GFR BUN/Creatinine Ratio Glucose Calcium Magnesium 2.2 Total Bilirubin AST ALT Alkaline Phosphatase Total Protein Albumin Globulin Albumin/Globulin Ratio Urine Color Urine Appearance Urine pH Ur Specific [place] Urine Protein Urine Glucose (UA) Urine Ketones Urine Occult Blood Urine Nitrate Urine Bilirubin Urine Urobilinogen Ur Leukocyte Esterase Urine RBC Urine WBC Ur Squamous Epith Cells Urine Bacteria Ur Culture Indicated? SARS-CoV-2 (PCR) Negative 05/16/20 05/16/20 06:23 09:50 WBC RBC Hgb Hct MCV MCH MCHC RDW Plt Count Neut % (Auto) Lymph % (Auto) [place] % (Auto) Eos % (Auto) Baso % (Auto) Neut # (Auto) Lymph # (Auto) [place] # (Auto) Eos # (Auto) Baso # (Auto) PT INR APTT Sodium 140 Potassium 3.2 L Chloride 105 Carbon Dioxide 32 BUN 29 H Creatinine 1.28 H Estimated GFR 39.9 L BUN/Creatinine Ratio 22.7 H Glucose 120 H Calcium 9.7 Magnesium Total Bilirubin AST ALT Alkaline Phosphatase Total Protein Albumin Globulin Albumin/Globulin Ratio Urine Color Yellow Urine Appearance Clear Urine pH 6.0 Ur Specific [place] 1.025 Urine Protein Negative Urine Glucose (UA) Negative Urine Ketones Negative Urine Occult Blood 3+ H Urine Nitrate Negative Urine Bilirubin Negative Urine Urobilinogen 0.2 Ur Leukocyte Esterase Trace H Urine RBC 1-5/hpf Urine WBC 1-5/hpf Ur Squamous Epith Cells 0-1 /hpf Urine Bacteria Few (2-10) H Ur Culture Indicated? Specimen cultured SARS-CoV-2 (PCR) PFS Medical History (Updated 05/16/20 @ 00:09 by MACHO Qureshi) Chronic sinus infection Hypertension Kidney stones Surgical History (Updated 05/16/20 @ 00:09 by MACHO Qureshi) History of appendectomy History of cholecystectomy History of colonoscopy History of hysterectomy History of sinus surgery Family History (Updated 05/16/20 @ 00:10 by MACHO Qureshi) Father Myocardial infarction Mother Cholelithiasis Social History household members: none Smoking Status: Never smoker alcohol intake: never Discharge Assessment & Plan Assessment and Plan Assessment: 1. Hematochezia 2. Diverticulosis 3. Acute kidney injury 4. Hypertension Number per 5 hyperlipidemia Plan of Treatment: Discharge home Discontinue hydrochlorothiazide Follow-up with primary care provider for outpatient referral for colonoscopy Discharge Plan Discharge Plan Patient Disposition: Home Discharge orders & Medications Prescriptions: New losartan 50 mg Tablet 50 mg PO DAILY Qty: 30 RF: 0 Continued Zyrtec 10 mg Tablet,Disintegrating 10 mg PO DAILY RF: 0 melatonin 3 mg Capsule 3 mg PO BEDTIME PRN (Reason: Sleep) RF: 0 lovastatin 40 mg Tablet 40 mg PO DAILY RF: 0 Discontinued potassium chloride 10 mEq tablet extended release 10 meq PO DAILY RF: 0 losartan-hydrochlorothiazide 50-12.5 mg tablet 50 tab PO DAILY RF: 0 Discharge Health Status Multidrug resistant organism: No MDRO Diet/Activity/Treatments Diet: Low-sodium Discharge Data Attending Provider: Leandro Floyd
== END 2020-05-16 15:40 | disposition home or self-care (01) ==
LOC: ED 21:39 → AC 21:53
PROVIDERS: Admitting Provider Nurse Practitioner Adult Health; Emergency Provider Emergency Medicine; Referring Provider Emergency Medicine; Visit Provider Nurse Practitioner Adult Health
DX: K62.5 Hemorrhage of anus and rectum (principal); I10 Essential (primary) hypertension; K57.30 Diverticulosis of large intestine without perforation or abscess without bleeding; E78.5 Hyperlipidemia, unspecified; N17.9 Acute kidney failure, unspecified; Z20.822 Contact with and (suspected) exposure to COVID-19
CPT/HCPCS: 36415; 74176; 80048; 80053; 81001; 83735; 85025; 85610; 85730; 87086; 87635; 96360; 96361; 99284; C9803; G0378